=== PATIENT | female | born 1955 | race Caucasian/White ===

== ENCOUNTER 2023-05-25 15:25 | Inpatient (IN) | payer MEDICARE ==
[~2023-05-25] VITALS: Ht 172.7 cm; Wt 90.7 kg
[~2023-05-25 15:25] MED LIST: BUPROPION XL150 MG PO; CRESTOR10 MG PO; FLUOXETINE HCL20 M1 PO; LOSARTAN POTAS100 MG PO; NAMENDA10 MG PO
[2023-05-25] MEDS ORDERED: SODIUM CHLORIDE 0.9% 1000ML 1,000 ML IV ONE ×2 (16:30)
[2023-05-25 17:04] LABS: BASOPHILS % 0.5 % (0.0-1.0); HEMATOCRIT 50.4 % (34.2-44.1); HEMOGLOBIN 16.6 g/dL (12.0-16.0); LYMPHOCYTES # (AUTO) 0.8 (1.0-3.2); LYMPHOCYTES % 12.7 % (18.0-39.1); MEAN CORPUSCULAR HEMOGLOBIN 28.6 pg (28-32); MEAN CORPUSCULAR HGB CONC 32.9 g/dL (31-35); MEAN CORPUSCULAR VOLUME 86.9 fL (81-99); MONOCYTES # (AUTO) 0.8 (0.2-0.8); MONOCYTES % 13.5 % (4.4-11.3); NEUTROPHILS # (AUTO) 4.5 (2.1-6.9); PLATELET COUNT 241 x10e3/uL (140-360); RED CELL DISTRIBUTION WIDTH 13.2 % (11.7-14.4); WHITE BLOOD COUNT 6.15 x10e3/uL (4.8-10.8)
[2023-05-25 17:13] LABS: CLARITY,URINE TURBID (CLEAR); COLOR,URINE YELLOW (YELLOW); GLUCOSE, URINE NEGATIVE (NEGATIVE); KETONES,URINE 2+ (NEGATIVE); LEUKOCYTE ESTERASE ,URINE MODERATE (NEGATIVE); NITRITE,URINE POSITIVE (NEGATIVE); PH,URINE 7.5 (5 - 7); PROTEIN,URINE DIPSTICK >=300 (NEGATIVE)
[2023-05-25 17:14] LABS: BILIRUBIN,URINE NEGATIVE (NEGATIVE); URINE UROBILINOGEN 0.2 mg/dL (0.2 - 1)
[2023-05-25 17:16] LABS: INR 0.98; PROTHROMBIN TIME 13.2 seconds (11.9-14.5)
[2023-05-25 17:17] LABS: PARTIAL THROMBOPLASTIN TIME 29.6 seconds (23.8-35.5)
[2023-05-25 17:18] LABS: BACTERIA,URINE MANY /HPF; EPITHELIAL CELLS,URINE FEW /LPF; TRIPLE PHOSPHATE CRYSTAL,UR MODERATE (FEW); WBC,URINE (MAN) >50 /HPF (0-5)
[2023-05-25 17:27] LABS: ALBUMIN 4.6 g/dL (3.5-5.0); ALBUMIN/GLOBULIN RATIO 1.3 (0.8-2.0); ANION GAP 17.4 mmol/L (8-16); BILIRUBIN,TOTAL 0.6 mg/dL (0.2-1.2); CALCIUM 9.3 mg/dL (8.4-10.2); CREATININE, SERUM 1.56 mg/dL (0.57-1.11); TOTAL PROTEIN 8.1 g/dL (6.5-8.1)
[2023-05-25 17:28] LABS: POTASSIUM 3.4 mmol/L (3.5-5.1)
[2023-05-25 17:31] LABS: ACETAMINOPHEN < 3.0 ug/mL (10-30); ETHANOL < 10.0 mg/dL (0.0-10.0); SALICYLATE < 5.0 mg/dL (0-30)
[2023-05-25 17:36] LABS: TROPONIN I 0.017 ng/mL (0-0.300)
[2023-05-25] MEDS: OSELTAMIVIR PHOSPHATE 75 MG CAP PO SCH (18:28)
[2023-05-25] MEDS: SODIUM CHLORIDE 0.9% 1000ML 1,000 ML IV SCH (19:41)
[2023-05-25] MEDS: HYDRALAZINE HCL 20 MG/ML VIAL IV PRN ×2 (20:00→23:40)
[2023-05-25] MEDS: ACETAMINOPHEN 325 MG TAB PO PRN (20:08)
[2023-05-25 20:30] VITALS: BP 171/88; PULSE 83; RESP 18; TEMP 98.9; O2SAT 97
[2023-05-25 23:30] VITALS: BP 171/88; PULSE 83; RESP 18; TEMP 98.9; O2SAT 97
[2023-05-26] VITALS (10 sets, daily range): BP systolic 150–170; BP diastolic 73–86; PULSE 68–89; RESP 18–20; TEMP 98.6–101.1; O2SAT 92–96
[2023-05-26] MEDS ORDERED: FAMOTIDINE20 MG PO (04:12)
[2023-05-26] MEDS ORDERED: PROTONIX20 MG PO (04:12)
[2023-05-26] MEDS ORDERED: ASPIRIN81 MG PO (04:12)
[2023-05-26] MEDS ORDERED: OXYBUTYNIN CHLOR5 MG PO (04:12)
[2023-05-26] MEDS: SODIUM CHLORIDE 0.9% 1000ML 1,000 ML IV SCH ×3 (04:48→23:19)
[2023-05-26] MEDS: ACETAMINOPHEN 325 MG TAB PO PRN ×2 (05:15→05:56)
[2023-05-26 05:56] LABS: BASOPHILS % 0.3 % (0.0-1.0); EOSINOPHILS % 0.3 % (0.0-6.0); HEMATOCRIT 42.6 % (34.2-44.1); HEMOGLOBIN 14.3 g/dL (12.0-16.0); LYMPHOCYTES # (AUTO) 0.7 (1.0-3.2); LYMPHOCYTES % 18.5 % (18.0-39.1); MEAN CORPUSCULAR HEMOGLOBIN 29.1 pg (28-32); MEAN CORPUSCULAR HGB CONC 33.6 g/dL (31-35); MEAN CORPUSCULAR VOLUME 86.8 fL (81-99); MONOCYTES # (AUTO) 0.8 (0.2-0.8); MONOCYTES % 20.3 % (4.4-11.3); NEUTROPHILS # (AUTO) 2.4 (2.1-6.9); NEUTROPHILS % 60.3 % (38.7-80.0); PLATELET COUNT 170 x10e3/uL (140-360); RED BLOOD COUNT 4.91 x10e6/uL (3.6-5.1); RED CELL DISTRIBUTION WIDTH 13.2 % (11.7-14.4); WHITE BLOOD COUNT 3.94 x10e3/uL (4.8-10.8)
[2023-05-26] MEDS: HYDRALAZINE HCL 20 MG/ML VIAL IV PRN (06:45)
[2023-05-26 07:11] LABS: ALBUMIN/GLOBULIN RATIO 1.3 (0.8-2.0); ANION GAP 15.9 mmol/L (8-16); BILIRUBIN,TOTAL 0.4 mg/dL (0.2-1.2); CREATININE, SERUM 0.84 mg/dL (0.57-1.11)
[2023-05-26 07:14] LABS: POTASSIUM 2.9 mmol/L (3.5-5.1)
[2023-05-26 07:15] LABS: ALBUMIN 3.5 g/dL (3.5-5.0); CALCIUM 7.8 mg/dL (8.4-10.2); TOTAL PROTEIN 6.3 g/dL (6.5-8.1)
[2023-05-26] MEDS: OSELTAMIVIR PHOSPHATE 75 MG CAP PO SCH ×2 (09:03→17:31)
[2023-05-26] MEDS ORDERED: ALBUTEROL/IPRATROPIUM 3 ML NEB NEB PRN (09:30)
[2023-05-26 09:35] LABS: BASOPHILS % (MANUAL) 2 % (0-1.5); LYMPHOCYTES % (MANUAL) 14 % (19-48); MONOCYTES % (MANUAL) 6 % (3.4-9.0); NEUTROPHILS % (MANUAL) 74 % (40-74); REACTIVE LYMPHOCYTES 4
[2023-05-26 09:36] LABS: PLATELET ESTIMATE ADEQUATE; PLATELET MORPHOLOGY COMMENT NORMAL; RBC MORPHOLOGY COMMENT NORMAL
[2023-05-26] MEDS ORDERED: PANTOPRAZOLE SOD 40 MG TABEC PO ONE (10:15)
[2023-05-26] MEDS: FLUOXETINE HCL 20 MG CAP PO SCH (11:38)
[2023-05-26] MEDS: ASPIRIN 81 MG CHEW TAB PO SCH (11:38)
[2023-05-26] MEDS: POTASSIUM CHLORIDE 10MEQ EA PO SCH ×2 (11:38→14:04)
[2023-05-26] MEDS: CRESTOR 10MG PO SCH (11:38)
[2023-05-26] MEDS: METOPROLOL TARTRATE 25 MG TAB PO SCH ×3 (11:42→21:16)
[2023-05-26] MEDS ORDERED: IOPAMIDOL 370 MG/ML 100 ML INFUS..BTL INJ ONE (11:56)
[2023-05-26] MEDS: ONDANSETRON HCL INJ 2MG/ML 2ML 2 MG/ML VIAL IV PRN (14:04)
[2023-05-26] MEDS: ENOXAPARIN SOD INJ 40 MG/0.4 ML SYR SC SCH (17:32)
[2023-05-26] MEDS: LOSARTAN POTASSIUM 100 MG TAB PO SCH (21:15)
[2023-05-27] VITALS (9 sets, daily range): BP systolic 141–165; BP diastolic 70–80; PULSE 51–81; RESP 16–20; TEMP 97.6–99.1; O2SAT 90–96
[2023-05-27 05:55] LABS: BASOPHILS % 0.6 % (0.0-1.0); EOSINOPHILS % 0.3 % (0.0-6.0); HEMATOCRIT 42.1 % (34.2-44.1); HEMOGLOBIN 14.1 g/dL (12.0-16.0); LYMPHOCYTES % 28.9 % (18.0-39.1); MEAN CORPUSCULAR HEMOGLOBIN 28.7 pg (28-32); MEAN CORPUSCULAR HGB CONC 33.5 g/dL (31-35); MEAN CORPUSCULAR VOLUME 85.6 fL (81-99); MONOCYTES # (AUTO) 0.5 (0.2-0.8); NEUTROPHILS % 54.6 % (38.7-80.0); PLATELET COUNT 163 x10e3/uL (140-360); RED BLOOD COUNT 4.92 x10e6/uL (3.6-5.1); RED CELL DISTRIBUTION WIDTH 13.2 % (11.7-14.4)
[2023-05-27 06:19] LABS: ANION GAP 14.6 mmol/L (8-16); CALCIUM 8.1 mg/dL (8.4-10.2); CREATININE, SERUM 0.85 mg/dL (0.57-1.11); POTASSIUM 3.6 mmol/L (3.5-5.1)
[2023-05-27 06:35] LABS: MAGNESIUM 1.9 MG/DL (1.3-2.1); PHOSPHORUS 2.5 MG/DL (2.3-4.7)
[2023-05-27 06:58] LABS: THYROID STIMULATING HORMONE 1.072 uIU/mL (0.350-4.940)
[2023-05-27] MEDS ORDERED: SIMVASTATIN 40 MG TAB PO SCH (09:00)
[2023-05-27] MEDS: ASPIRIN 81 MG CHEW TAB PO SCH (09:54)
[2023-05-27] MEDS: PANTOPRAZOLE SOD 40 MG TABEC PO SCH (09:54)
[2023-05-27] MEDS: FLUOXETINE HCL 20 MG CAP PO SCH (09:54)
[2023-05-27] MEDS: OSELTAMIVIR PHOSPHATE 75 MG CAP PO SCH ×2 (09:54→16:28)
[2023-05-27] MEDS: CRESTOR 10MG PO SCH (09:55)
[2023-05-27] MEDS: METOPROLOL TARTRATE 25 MG TAB PO SCH ×3 (09:57→21:25)
[2023-05-27] MEDS: SODIUM CHLORIDE 0.9% 1000ML 1,000 ML IV SCH (09:58)
[2023-05-27 15:44] LABS: HEMATOCRIT 41.7 % (34.2-44.1); HEMOGLOBIN 13.5 g/dL (12.0-16.0); MEAN CORPUSCULAR HEMOGLOBIN 28.3 pg (28-32); MEAN CORPUSCULAR HGB CONC 32.4 g/dL (31-35); MEAN CORPUSCULAR VOLUME 87.4 fL (81-99); PLATELET COUNT 167 x10e3/uL (140-360); RED BLOOD COUNT 4.77 x10e6/uL (3.6-5.1); RED CELL DISTRIBUTION WIDTH 13.2 % (11.7-14.4); WHITE BLOOD COUNT 3.63 x10e3/uL (4.8-10.8)
[2023-05-27] MEDS: ENOXAPARIN SOD INJ 40 MG/0.4 ML SYR SC SCH (16:28)
[2023-05-27 19:17] LABS: LYMPHOCYTES % (MANUAL) 21 % (19-48); MONOCYTES % (MANUAL) 4 % (3.4-9.0); NEUTROPHILS % (MANUAL) 65 % (40-74); REACTIVE LYMPHOCYTES 10
[2023-05-27 19:18] LABS: HYPOCHROMASIA SLIGHT; PLATELET ESTIMATE ADEQUATE; PLATELET MORPHOLOGY COMMENT NORMAL; RBC MORPHOLOGY COMMENT NORMAL
[2023-05-27] MEDS: LOSARTAN POTASSIUM 100 MG TAB PO SCH (21:24)
[2023-05-28] VITALS (9 sets, daily range): BP systolic 153–191; BP diastolic 80–95; PULSE 60–85; RESP 15–20; TEMP 97.7–100; O2SAT 92–98
[2023-05-28] MEDS: SODIUM CHLORIDE 0.9% 1000ML 1,000 ML IV SCH ×2 (03:48→16:21)
[2023-05-28] MEDS: METOPROLOL TARTRATE 25 MG TAB PO SCH ×3 (05:32→22:47)
[2023-05-28 06:15] LABS: BASOPHILS % 0.2 % (0.0-1.0); EOSINOPHILS % 0.9 % (0.0-6.0); HEMOGLOBIN 14.5 g/dL (12.0-16.0); LYMPHOCYTES # (AUTO) 1.1 (1.0-3.2); MEAN CORPUSCULAR HEMOGLOBIN 28.5 pg (28-32); MEAN CORPUSCULAR VOLUME 86.4 fL (81-99); MONOCYTES # (AUTO) 0.5 (0.2-0.8); MONOCYTES % 11.4 % (4.4-11.3); NEUTROPHILS # (AUTO) 2.9 (2.1-6.9); NEUTROPHILS % 63.3 % (38.7-80.0); PLATELET COUNT 172 x10e3/uL (140-360); RED BLOOD COUNT 5.09 x10e6/uL (3.6-5.1); RED CELL DISTRIBUTION WIDTH 12.9 % (11.7-14.4); WHITE BLOOD COUNT 4.55 x10e3/uL (4.8-10.8)
[2023-05-28] MEDS: FLUOXETINE HCL 20 MG CAP PO SCH (08:37)
[2023-05-28] MEDS: PANTOPRAZOLE SOD 40 MG TABEC PO SCH (08:37)
[2023-05-28] MEDS: OSELTAMIVIR PHOSPHATE 75 MG CAP PO SCH ×2 (08:37→16:31)
[2023-05-28] MEDS: CRESTOR 10MG PO SCH (08:38)
[2023-05-28] MEDS: HYDRALAZINE HCL 20 MG/ML VIAL IV PRN (08:38)
[2023-05-28] MEDS: ASPIRIN 81 MG CHEW TAB PO SCH (08:38)
[2023-05-28] MEDS: CHLORTHALIDONE 25 MG TAB PO SCH (10:09)
[2023-05-28] MEDS: ACETAMINOPHEN 325 MG TAB PO PRN (11:53)
[2023-05-28] MEDS: ENOXAPARIN SOD INJ 40 MG/0.4 ML SYR SC SCH (16:31)
[2023-05-28] MEDS: ONDANSETRON HCL INJ 2MG/ML 2ML 2 MG/ML VIAL IV PRN (19:49)
[2023-05-28] MEDS: LOSARTAN POTASSIUM 100 MG TAB PO SCH (22:47)
[2023-05-29] VITALS (10 sets, daily range): BP systolic 115–183; BP diastolic 60–93; PULSE 56–66; RESP 18–19; TEMP 98–99.2; O2SAT 92–96
[2023-05-29] MEDS: METOPROLOL TARTRATE 25 MG TAB PO SCH ×3 (05:33→22:06)
[2023-05-29] MEDS: PANTOPRAZOLE SOD 40 MG TABEC PO SCH (07:26)
[2023-05-29] MEDS: CHLORTHALIDONE 25 MG TAB PO SCH (08:25)
[2023-05-29] MEDS: CRESTOR 10MG PO SCH (08:25)
[2023-05-29] MEDS: FLUOXETINE HCL 20 MG CAP PO SCH (08:25)
[2023-05-29] MEDS: ASPIRIN 81 MG CHEW TAB PO SCH (08:26)
[2023-05-29] MEDS: OSELTAMIVIR PHOSPHATE 75 MG CAP PO SCH ×2 (08:26→17:20)
[2023-05-29] MEDS: SODIUM CHLORIDE 0.9% 1000ML 1,000 ML IV SCH ×2 (08:29→22:16)
[2023-05-29] MEDS: ENOXAPARIN SOD INJ 40 MG/0.4 ML SYR SC SCH (17:20)
[2023-05-29] MEDS: LOSARTAN POTASSIUM 100 MG TAB PO SCH (22:05)
[2023-05-30] VITALS (9 sets, daily range): BP systolic 143–188; BP diastolic 71–93; PULSE 58–66; RESP 18–20; TEMP 97.5–99; O2SAT 92–98
[2023-05-30] MEDS: METOPROLOL TARTRATE 25 MG TAB PO SCH ×3 (05:38→21:24)
[2023-05-30] MEDS: PANTOPRAZOLE SOD 40 MG TABEC PO SCH (07:30)
[2023-05-30] MEDS: ASPIRIN 81 MG CHEW TAB PO SCH (08:54)
[2023-05-30] MEDS: OSELTAMIVIR PHOSPHATE 75 MG CAP PO SCH ×2 (08:54→17:47)
[2023-05-30] MEDS: CRESTOR 10MG PO SCH (08:54)
[2023-05-30] MEDS: CHLORTHALIDONE 25 MG TAB PO SCH (08:54)
[2023-05-30] MEDS: FLUOXETINE HCL 20 MG CAP PO SCH (08:54)
[2023-05-30] MEDS ORDERED: NIFEDIPINE CR 30 MG TAB PO ONE (09:45)
[2023-05-30] MEDS: ENOXAPARIN SOD INJ 40 MG/0.4 ML SYR SC SCH (17:47)
[2023-05-30] MEDS: LOSARTAN POTASSIUM 100 MG TAB PO SCH (21:23)
[2023-05-31] VITALS (8 sets, daily range): BP systolic 122–173; BP diastolic 58–97; PULSE 57–68; RESP 16–20; TEMP 97.3–99.6; O2SAT 93–97
[2023-05-31] MEDS: METOPROLOL TARTRATE 25 MG TAB PO SCH ×4 (05:25→21:13)
[2023-05-31] MEDS ORDERED: NIFEDIPINE CR 30 MG TAB PO SCH (06:00)
[2023-05-31] MEDS ORDERED: CEFTRIAXONE 1 GM VIAL ONE (07:45)
[2023-05-31] MEDS: MEMANTINE 10 MG TAB PO SCH (08:25)
[2023-05-31] MEDS: PANTOPRAZOLE SOD 40 MG TABEC PO SCH (08:25)
[2023-05-31] MEDS: FLUOXETINE HCL 20 MG CAP PO SCH (08:25)
[2023-05-31] MEDS: CRESTOR 10MG PO SCH (08:25)
[2023-05-31] MEDS: BUPROPION HCL 150 MG TABCR PO SCH (08:25)
[2023-05-31] MEDS: ASPIRIN 81 MG CHEW TAB PO SCH (08:25)
[2023-05-31 08:40] LABS: BASOPHILS % 0.4 % (0.0-1.0); EOSINOPHILS # (AUTO) 0.1 (0.0-0.4); HEMATOCRIT 42.1 % (34.2-44.1); HEMOGLOBIN 14.4 g/dL (12.0-16.0); LYMPHOCYTES # (AUTO) 1.3 (1.0-3.2); LYMPHOCYTES % 23.6 % (18.0-39.1); MEAN CORPUSCULAR HEMOGLOBIN 28.3 pg (28-32); MEAN CORPUSCULAR HGB CONC 34.2 g/dL (31-35); MEAN CORPUSCULAR VOLUME 82.7 fL (81-99); MONOCYTES # (AUTO) 0.8 (0.2-0.8); MONOCYTES % 13.7 % (4.4-11.3); NEUTROPHILS # (AUTO) 3.3 (2.1-6.9); NEUTROPHILS % 59.9 % (38.7-80.0); PLATELET COUNT 181 x10e3/uL (140-360); RED BLOOD COUNT 5.09 x10e6/uL (3.6-5.1); RED CELL DISTRIBUTION WIDTH 12.2 % (11.7-14.4); WHITE BLOOD COUNT 5.47 x10e3/uL (4.8-10.8)
[2023-05-31 08:56] LABS: ALBUMIN 3.4 g/dL (3.5-5.0); BILIRUBIN,TOTAL 0.9 mg/dL (0.2-1.2); CALCIUM 8.4 mg/dL (8.4-10.2); CREATININE, SERUM 0.79 mg/dL (0.57-1.11); TOTAL PROTEIN 6.9 g/dL (6.5-8.1)
[2023-05-31] MEDS ORDERED: POTASSIUM CHLORIDE 20 MEQ TAB CR PO PRN (09:30)
[2023-05-31] MEDS ORDERED: POTASSIUM CHLORIDE 20 MEQ TAB CR PO ONE (16:50)
[2023-05-31] MEDS: ENOXAPARIN SOD INJ 40 MG/0.4 ML SYR SC SCH (17:41)
[2023-05-31] MEDS: LOSARTAN POTASSIUM 100 MG TAB PO SCH (21:12)
[2023-06-01] VITALS (12 sets, daily range): BP systolic 115–188; BP diastolic 61–99; PULSE 61–77; RESP 16–20; TEMP 98.1–99.6; O2SAT 94–100
[2023-06-01] MEDS: NIFEDIPINE CR 30 MG TAB PO SCH (06:46)
[2023-06-01] MEDS: METOPROLOL TARTRATE 25 MG TAB PO SCH ×3 (06:46→21:31)
[2023-06-01] MEDS: MEMANTINE 10 MG TAB PO SCH (08:29)
[2023-06-01] MEDS: CRESTOR 10MG PO SCH (08:29)
[2023-06-01] MEDS: ASPIRIN 81 MG CHEW TAB PO SCH (08:29)
[2023-06-01] MEDS: BUPROPION HCL 150 MG TABCR PO SCH (08:29)
[2023-06-01] MEDS: FLUOXETINE HCL 20 MG CAP PO SCH (08:29)
[2023-06-01] MEDS: PANTOPRAZOLE SOD 40 MG TABEC PO SCH (08:30)
[2023-06-01] MEDS: ENOXAPARIN SOD INJ 40 MG/0.4 ML SYR SC SCH (16:55)
[2023-06-01] MEDS: LOSARTAN POTASSIUM 100 MG TAB PO SCH (21:30)
[2023-06-02] VITALS (8 sets, daily range): BP systolic 122–148; BP diastolic 62–77; PULSE 63–75; RESP 18–20; TEMP 97.8–98.4; O2SAT 94–97
[2023-06-02] MEDS: NIFEDIPINE CR 30 MG TAB PO SCH (05:31)
[2023-06-02] MEDS: METOPROLOL TARTRATE 25 MG TAB PO SCH ×3 (05:31→20:52)
[2023-06-02 06:17] LABS: BASOPHILS # (AUTO) 0.1 (0.0-0.1); BASOPHILS % 0.7 % (0.0-1.0); EOSINOPHILS # (AUTO) 0.2 (0.0-0.4); EOSINOPHILS % 2.9 % (0.0-6.0); HEMATOCRIT 42.1 % (34.2-44.1); HEMOGLOBIN 14.1 g/dL (12.0-16.0); LYMPHOCYTES # (AUTO) 1.3 (1.0-3.2); MEAN CORPUSCULAR HEMOGLOBIN 28.4 pg (28-32); MEAN CORPUSCULAR HGB CONC 33.5 g/dL (31-35); MEAN CORPUSCULAR VOLUME 84.9 fL (81-99); MONOCYTES # (AUTO) 0.9 (0.2-0.8); MONOCYTES % 12.6 % (4.4-11.3); NEUTROPHILS # (AUTO) 4.8 (2.1-6.9); NEUTROPHILS % 65.5 % (38.7-80.0); PLATELET COUNT 250 x10e3/uL (140-360); RED BLOOD COUNT 4.96 x10e6/uL (3.6-5.1); RED CELL DISTRIBUTION WIDTH 12.3 % (11.7-14.4); WHITE BLOOD COUNT 7.28 x10e3/uL (4.8-10.8)
[2023-06-02 06:39] LABS: ANION GAP 14.2 mmol/L (8-16); CALCIUM 8.7 mg/dL (8.4-10.2); CREATININE, SERUM 0.97 mg/dL (0.57-1.11)
[2023-06-02 06:40] LABS: POTASSIUM 3.2 mmol/L (3.5-5.1)
[2023-06-02] MEDS: FLUOXETINE HCL 20 MG CAP PO SCH (10:14)
[2023-06-02] MEDS: MEMANTINE 10 MG TAB PO SCH (10:14)
[2023-06-02] MEDS: BUPROPION HCL 150 MG TABCR PO SCH (10:14)
[2023-06-02] MEDS: ASPIRIN 81 MG CHEW TAB PO SCH (10:14)
[2023-06-02] MEDS: CRESTOR 10MG PO SCH (10:14)
[2023-06-02] MEDS: PANTOPRAZOLE SOD 40 MG TABEC PO SCH (10:14)
[2023-06-02] MEDS ORDERED: ONDANSETRON HCL 4 MG ORAL DISINTEGRATING TAB PO PRN (14:30)
[2023-06-02] MEDS: ENOXAPARIN SOD INJ 40 MG/0.4 ML SYR SC SCH (17:31)
[2023-06-02] MEDS: LOSARTAN POTASSIUM 100 MG TAB PO SCH (20:52)
[2023-06-03] VITALS (8 sets, daily range): BP systolic 136–151; BP diastolic 70–79; PULSE 64–72; RESP 17–20; TEMP 97–98.6; O2SAT 95–100
[2023-06-03] MEDS: NIFEDIPINE CR 30 MG TAB PO SCH (05:42)
[2023-06-03] MEDS: METOPROLOL TARTRATE 25 MG TAB PO SCH ×3 (05:44→21:15)
[2023-06-03] MEDS: PANTOPRAZOLE SOD 40 MG TABEC PO SCH (07:30)
[2023-06-03] MEDS: FLUOXETINE HCL 20 MG CAP PO SCH (11:48)
[2023-06-03] MEDS: BUPROPION HCL 150 MG TABCR PO SCH (11:48)
[2023-06-03] MEDS: ASPIRIN 81 MG CHEW TAB PO SCH (11:48)
[2023-06-03] MEDS: MEMANTINE 10 MG TAB PO SCH (11:48)
[2023-06-03] MEDS: CRESTOR 10MG PO SCH (11:48)
[2023-06-03] MEDS: ENOXAPARIN SOD INJ 40 MG/0.4 ML SYR SC SCH (17:41)
[2023-06-03] MEDS: LOSARTAN POTASSIUM 100 MG TAB PO SCH (21:16)
[2023-06-04] VITALS (11 sets, daily range): BP systolic 128–163; BP diastolic 65–97; PULSE 58–73; RESP 16–19; TEMP 97–98.4; O2SAT 94–100
[2023-06-04] MEDS: NIFEDIPINE CR 30 MG TAB PO SCH (05:38)
[2023-06-04] MEDS: METOPROLOL TARTRATE 25 MG TAB PO SCH ×3 (05:39→21:10)
[2023-06-04] MEDS: PANTOPRAZOLE SOD 40 MG TABEC PO SCH (08:30)
[2023-06-04] MEDS: CRESTOR 10MG PO SCH (08:34)
[2023-06-04] MEDS: ASPIRIN 81 MG CHEW TAB PO SCH (08:34)
[2023-06-04] MEDS: FLUOXETINE HCL 20 MG CAP PO SCH (08:34)
[2023-06-04] MEDS: BUPROPION HCL 150 MG TABCR PO SCH (08:34)
[2023-06-04] MEDS: MEMANTINE 10 MG TAB PO SCH (08:34)
[2023-06-04 09:34] LABS: BASOPHILS # (AUTO) 0.1 (0.0-0.1); BASOPHILS % 0.7 % (0.0-1.0); EOSINOPHILS # (AUTO) 0.2 (0.0-0.4); EOSINOPHILS % 2.5 % (0.0-6.0); HEMATOCRIT 44.9 % (34.2-44.1); HEMOGLOBIN 14.5 g/dL (12.0-16.0); LYMPHOCYTES # (AUTO) 1.2 (1.0-3.2); LYMPHOCYTES % 13.9 % (18.0-39.1); MEAN CORPUSCULAR HEMOGLOBIN 28.2 pg (28-32); MEAN CORPUSCULAR HGB CONC 32.3 g/dL (31-35); MEAN CORPUSCULAR VOLUME 87.4 fL (81-99); MONOCYTES % 11.9 % (4.4-11.3); NEUTROPHILS % 70.6 % (38.7-80.0); PLATELET COUNT 367 x10e3/uL (140-360); RED BLOOD COUNT 5.14 x10e6/uL (3.6-5.1); RED CELL DISTRIBUTION WIDTH 12.3 % (11.7-14.4); WHITE BLOOD COUNT 8.51 x10e3/uL (4.8-10.8)
[2023-06-04] MEDS ORDERED: SODIUM CHLORIDE 0.9% 250ML 250 ML ONE (09:47)
[2023-06-04 09:55] LABS: ANION GAP 13.6 mmol/L (8-16); CALCIUM 9.4 mg/dL (8.4-10.2); CREATININE, SERUM 0.88 mg/dL (0.57-1.11); POTASSIUM 3.6 mmol/L (3.5-5.1)
[2023-06-04] MEDS: ENOXAPARIN SOD INJ 40 MG/0.4 ML SYR SC SCH (16:37)
[2023-06-04] MEDS: LOSARTAN POTASSIUM 100 MG TAB PO SCH (21:10)
[2023-06-05] VITALS (9 sets, daily range): BP systolic 141–159; BP diastolic 69–95; PULSE 61–76; RESP 16–20; TEMP 97.9–98.4; O2SAT 95–98
[2023-06-05] MEDS: NIFEDIPINE CR 30 MG TAB PO SCH (06:28)
[2023-06-05] MEDS: METOPROLOL TARTRATE 25 MG TAB PO SCH ×3 (06:29→21:21)
[2023-06-05 06:33] LABS: HEPATITIS B SURFACE AG (P) Negative; HEPATITIS C ANTIBODY Non Reactive
[2023-06-05] MEDS: FLUOXETINE HCL 20 MG CAP PO SCH (09:39)
[2023-06-05] MEDS: CRESTOR 10MG PO SCH (09:39)
[2023-06-05] MEDS: ASPIRIN 81 MG CHEW TAB PO SCH (09:39)
[2023-06-05] MEDS: MEMANTINE 10 MG TAB PO SCH (09:39)
[2023-06-05] MEDS: PANTOPRAZOLE SOD 40 MG TABEC PO SCH (09:39)
[2023-06-05] MEDS: BUPROPION HCL 150 MG TABCR PO SCH (09:40)
[2023-06-05] MEDS: ENOXAPARIN SOD INJ 40 MG/0.4 ML SYR SC SCH (17:49)
[2023-06-05] MEDS: LOSARTAN POTASSIUM 100 MG TAB PO SCH (21:21)
[2023-06-06] VITALS (9 sets, daily range): BP systolic 139–149; BP diastolic 68–81; PULSE 61–74; RESP 17–21; TEMP 98–98.3; O2SAT 92–95
[2023-06-06] MEDS: NIFEDIPINE CR 30 MG TAB PO SCH (05:19)
[2023-06-06] MEDS: METOPROLOL TARTRATE 25 MG TAB PO SCH ×3 (05:20→21:53)
[2023-06-06] MEDS: BUPROPION HCL 150 MG TABCR PO SCH (09:36)
[2023-06-06] MEDS: MEMANTINE 10 MG TAB PO SCH (09:36)
[2023-06-06] MEDS: FLUOXETINE HCL 20 MG CAP PO SCH (09:37)
[2023-06-06] MEDS: PANTOPRAZOLE SOD 40 MG TABEC PO SCH (09:37)
[2023-06-06] MEDS: CRESTOR 10MG PO SCH (09:37)
[2023-06-06] MEDS: ASPIRIN 81 MG CHEW TAB PO SCH (09:37)
[2023-06-06] MEDS: ENOXAPARIN SOD INJ 40 MG/0.4 ML SYR SC SCH (16:32)
[2023-06-06] MEDS: LOSARTAN POTASSIUM 100 MG TAB PO SCH (21:52)
[2023-06-07] VITALS (10 sets, daily range): BP systolic 122–158; BP diastolic 62–86; PULSE 58–69; RESP 17–20; TEMP 97.2–98.5; O2SAT 95–99
[2023-06-07] MEDS: NIFEDIPINE CR 30 MG TAB PO SCH (05:20)
[2023-06-07] MEDS: METOPROLOL TARTRATE 25 MG TAB PO SCH ×3 (05:21→21:41)
[2023-06-07] MEDS: PANTOPRAZOLE SOD 40 MG TABEC PO SCH (08:25)
[2023-06-07] MEDS: BUPROPION HCL 150 MG TABCR PO SCH (09:59)
[2023-06-07] MEDS: CRESTOR 10MG PO SCH (09:59)
[2023-06-07] MEDS: FLUOXETINE HCL 20 MG CAP PO SCH (09:59)
[2023-06-07] MEDS: MEMANTINE 10 MG TAB PO SCH (09:59)
[2023-06-07] MEDS: ASPIRIN 81 MG CHEW TAB PO SCH (09:59)
[2023-06-07] MEDS: ENOXAPARIN SOD INJ 40 MG/0.4 ML SYR SC SCH (17:18)
[2023-06-07] MEDS: LOSARTAN POTASSIUM 100 MG TAB PO SCH (21:42)
[2023-06-08] VITALS (9 sets, daily range): BP systolic 116–158; BP diastolic 68–91; PULSE 58–83; RESP 18–20; TEMP 97.3–98.8; O2SAT 94–98
[2023-06-08] MEDS: NIFEDIPINE CR 30 MG TAB PO SCH (06:05)
[2023-06-08] MEDS: METOPROLOL TARTRATE 25 MG TAB PO SCH ×3 (06:06→20:32)
[2023-06-08 06:26] LABS: BASOPHILS # (AUTO) 0.1 (0.0-0.1); BASOPHILS % 0.9 % (0.0-1.0); EOSINOPHILS # (AUTO) 0.2 (0.0-0.4); EOSINOPHILS % 3.1 % (0.0-6.0); HEMATOCRIT 40.5 % (34.2-44.1); HEMOGLOBIN 13.2 g/dL (12.0-16.0); LYMPHOCYTES # (AUTO) 1.7 (1.0-3.2); LYMPHOCYTES % 22.1 % (18.0-39.1); MEAN CORPUSCULAR HEMOGLOBIN 28.8 pg (28-32); MEAN CORPUSCULAR HGB CONC 32.6 g/dL (31-35); MEAN CORPUSCULAR VOLUME 88.4 fL (81-99); MONOCYTES # (AUTO) 0.9 (0.2-0.8); MONOCYTES % 12.3 % (4.4-11.3); NEUTROPHILS # (AUTO) 4.6 (2.1-6.9); NEUTROPHILS % 61.3 % (38.7-80.0); PLATELET COUNT 416 x10e3/uL (140-360); RED BLOOD COUNT 4.58 x10e6/uL (3.6-5.1); RED CELL DISTRIBUTION WIDTH 12.4 % (11.7-14.4); WHITE BLOOD COUNT 7.46 x10e3/uL (4.8-10.8)
[2023-06-08 07:15] LABS: ANION GAP 12.6 mmol/L (8-16); CREATININE, SERUM 0.85 mg/dL (0.57-1.11); POTASSIUM 3.6 mmol/L (3.5-5.1)
[2023-06-08] MEDS: PANTOPRAZOLE SOD 40 MG TABEC PO SCH (08:29)
[2023-06-08] MEDS: CRESTOR 10MG PO SCH (09:55)
[2023-06-08] MEDS: ASPIRIN 81 MG CHEW TAB PO SCH (09:55)
[2023-06-08] MEDS: FLUOXETINE HCL 20 MG CAP PO SCH (09:55)
[2023-06-08] MEDS: BUPROPION HCL 150 MG TABCR PO SCH (09:55)
[2023-06-08] MEDS: MEMANTINE 10 MG TAB PO SCH (09:56)
[2023-06-08] MEDS ORDERED: MAGNESIUM HYDROXIDE 30 ML UDC PO ONE (16:15)
[2023-06-08] MEDS: ENOXAPARIN SOD INJ 40 MG/0.4 ML SYR SC SCH (16:39)
[2023-06-08] MEDS ORDERED: SENNA-S TABLET PO SCH (17:00)
[2023-06-08] MEDS ORDERED: POLYETHYLENE GLYCOL 3350 17 GM PACK PO SCH (17:00)
[2023-06-08] MEDS: LOSARTAN POTASSIUM 100 MG TAB PO SCH (20:32)
== END 2023-06-08 21:30 | DRG 865 ==
LOC: ER 15:38 → ERHOLD 18:26 → MED/SURG3 20:33 → OBSVTOIN 05-26 10:04 → MED/SURG3 05-27 14:20
PROVIDERS: ADMIT Internal Medicine; ATTEND Internal Medicine
DX: J10.81 Influenza due to other identified influenza virus with encephalopathy (principal); J15.9 Unspecified bacterial pneumonia; N39.0 Urinary tract infection, site not specified; F02.811 Dementia in other diseases classified elsewhere, unspecified severity, with agitation; F05 Delirium due to known physiological condition; F01.511 Vascular dementia, unspecified severity, with agitation; G30.9 Alzheimer's disease, unspecified; B96.4 Proteus (mirabilis) (morganii) as the cause of diseases classified elsewhere; R33.9 Retention of urine, unspecified; R53.81 Other malaise; E87.8 Other disorders of electrolyte and fluid balance, not elsewhere classified; E86.1 Hypovolemia; E86.0 Dehydration; N63.0 Unspecified lump in unspecified breast; N32.81 Overactive bladder; I16.0 Hypertensive urgency; I10 Essential (primary) hypertension; N63.20 Unspecified lump in the left breast, unspecified quadrant; R59.0 Localized enlarged lymph nodes; D72.819 Decreased white blood cell count, unspecified; Z91.81 History of falling; W19.XXXA Unspecified fall, initial encounter; Y92.009 Unspecified place in unspecified non-institutional (private) residence as the place of occurrence of the external cause
CPT/HCPCS: 36415; 70450; 71045; 71260; 74018; 74176; 74470; 80048; 80053; 80320; 80329; 81001; 82607; 82746; 83735; 83970; 84100; 84443; 84484; 85007; 85025; 85027; 85610; 85730; 87086; 87186; 87400; 93005; 94799; 96361; 99252; 99285; G0378; J0696; J1650; J2405; J7030; J7050; Q0162; Q9967; U0002

== ENCOUNTER 2024-02-22 00:50 | Emergency (ER) | payer MEDICARE ==
[~2024-02-22] VITALS: Ht 172.7 cm; Wt 90.7 kg
[~2024-02-22 00:50] MED LIST changes: +ASPIRIN81 MG PO; +FAMOTIDINE20 MG PO; +OXYBUTYNIN CHLOR5 MG PO; +PROTONIX20 MG PO
[2024-02-22 00:58] VITALS: TEMP 99.1
[2024-02-22 01:23] LABS: BASOPHILS % 0.3 % (0.0-1.0); EOSINOPHILS % 0.2 % (0.0-6.0); HEMATOCRIT 46.6 % (34.2-44.1); HEMOGLOBIN 15.5 g/dL (12.0-16.0); LYMPHOCYTES # (AUTO) 0.8 (1.0-3.2); LYMPHOCYTES % 6.6 % (18.0-39.1); MEAN CORPUSCULAR HEMOGLOBIN 29.1 pg (28-32); MEAN CORPUSCULAR HGB CONC 33.3 g/dL (31-35); MEAN CORPUSCULAR VOLUME 87.6 fL (81-99); MONOCYTES # (AUTO) 0.6 (0.2-0.8); MONOCYTES % 4.9 % (4.4-11.3); NEUTROPHILS # (AUTO) 10.3 (2.1-6.9); NEUTROPHILS % 87.7 % (38.7-80.0); PLATELET COUNT 304 x10e3/uL (140-360); RED BLOOD COUNT 5.32 x10e6/uL (3.6-5.1); RED CELL DISTRIBUTION WIDTH 13.4 % (11.7-14.4)
[2024-02-22] MEDS: METHYLPREDNISOLONE SOD SUCC 125 MG/2ML VIAL IV STA (01:23)
[2024-02-22] MEDS: SODIUM CHLORIDE 0.9% 1000ML 1,000 ML IV STA (01:23)
[2024-02-22] MEDS: METOCLOPRAMIDE HCL 10 MG/2ML VIAL IV STA (01:24)
[2024-02-22] MEDS: KETOROLAC TROMETHAMINE 30 MG/ML VIAL IV STA (01:26)
[2024-02-22] MEDS: DIPHENHYDRAMINE HCL INJ 50 MG/ML VIAL IV STA (01:27)
[2024-02-22 01:45] LABS: ALANINE AMINOTRANSFERASE 13 IU/L (0-55); ALBUMIN 4.2 g/dL (3.5-5.0); ALBUMIN/GLOBULIN RATIO 1.1 (0.8-2.0); ALKALINE PHOSPHATASE 96 IU/L (40-150); ANION GAP 17.3 mmol/L (8-16); BILIRUBIN,TOTAL 0.9 mg/dL (0.2-1.2); BLOOD UREA NITROGEN 23 mg/dL (7-26); BUN/CREATININE RATIO 21 (6-25); CALCIUM 9.4 mg/dL (8.4-10.2); CARBON DIOXIDE 20 mmol/L (22-29); CHLORIDE 106 mmol/L (98-107); CREATINE KINASE 89 IU/L (29-168); CREATININE, SERUM 1.11 mg/dL (0.57-1.11); EST GLOMERULAR FILTRATION RATE 54 ML/MIN (>=60); GLUCOSE 153 mg/dL (74-118); SODIUM 138 mmol/L (136-145); TOTAL PROTEIN 7.9 g/dL (6.5-8.1)
[2024-02-22 01:46] LABS: POTASSIUM 5.3 mmol/L (3.5-5.1)
[2024-02-22 02:19] LABS: TROPONIN I < 0.001 ng/mL (0-0.300)
[2024-02-22 03:21] VITALS: PULSE 68; RESP 13
[2024-02-22 03:59] VITALS: BP 153/77; O2SAT 96
[2024-02-22] MEDS: ONDANSETRON HCL INJ 2MG/ML 2ML 2 MG/ML VIAL IV STA (04:02)
[2024-02-22] MEDS ORDERED: IOPAMIDOL 370 MG/ML 100 ML INFUS..BTL INJ ONE (05:35)
== END 2024-02-22 04:00 | disposition other institution (70) ==
LOC: ER 00:55
DX: R41.82 Altered mental status, unspecified (principal); I63.431 Cerebral infarction due to embolism of right posterior cerebral artery; R51.9 Headache, unspecified; R50.9 Fever, unspecified; R53.1 Weakness; E78.5 Hyperlipidemia, unspecified; F03.90 Unspecified dementia, unspecified severity, without behavioral disturbance, psychotic disturbance, mood disturbance, and anxiety; Z11.52 Encounter for screening for COVID-19; Z85.3 Personal history of malignant neoplasm of breast; Z86.73 Personal history of transient ischemic attack (TIA), and cerebral infarction without residual deficits
CPT/HCPCS: 36415; 70450; 70496; 70498; 71045; 80053; 82550; 83880; 84484; 85025; 87400; 99284; J1200; J1885; J2765; J2919; J7030; Q9967; U0002